=== PATIENT | male | born 1965 | race Caucasian/White ===

== ENCOUNTER 2024-09-22 18:42 | Inpatient (IN) | payer BC, OTHER ==
[~2024-09-22] VITALS: Ht 177.8 cm; Wt 93.1 kg
--- NOTE | 2024-09-22 19:02 | ED.PDOC ---
HPI Comments 58-year-old male with PMHx HTN, DM, Asthma brought in by EMS from [facility] presents with a chief complaint of body aches, fever, vomiting, and cough x 1 week. Patient states that he has been feeling this way for the past week. Patient was transferred due to elevated troponin levels, but had no ST elevations and was documented that he has an NSTEMI. Patients troponin level was 1.82. Patient is not endorsing any chest pain at this time. Patient was transferred with a Heparin drip and was given ASA. EKG shows NSR and rate of 85. No other symptoms or modifying factors present at this time. Chief Complaint: Body Pain Time Seen by MD: 18:48 Reviewed Notes: System Admin Notes, Medications, Allergies Allergies: Coded Allergies: NO KNOWN ALLERGIES (Unverified , 09/22/24) Information Source: Emergency Med Personnel Mode of Arrival: EMS Severity: Moderate Timing: Days Duration: Since onset Prehospital treatment: ASA, Treatment (Heparin Drip ) Onset: At Rest Cardiac Risk Factors: Smoker PE Risk Factors: None History of: Aspirin Associated Signs and Symptoms: Other (BODY ACHES) Past Medical History PAST MEDICAL HISTORY: Asthma, DM, HTN Surgical History: Denies all surgeries SKIN TANNER History: Denies all SKIN TANNER Hx Family History Family History: Reviewed,noncontributory to illness Social History Smoker: Cigarettes Alcohol: Denies ETOH Use Drugs: Denies Drug Use Lives In: Home Constitutional: reports: fever, others (BODY ACHES); denies: chills, diaphoresis, fatigue, malaise, sweats, weakness EENTM: denies: blurred vision, double vision, ear bleeding, ear discharge, ear drainage, ear pain, ear ringing, eye pain, eye redness, hearing loss, mouth pain, mouth swelling, nasal discharge, nose bleeding, nose congestion, nose pain, photophobia, tearing, throat pain, throat swelling, voice changes, others Respiratory: reports: cough; denies: hemoptysis, orthopnea, SOB at rest, shortness of breath, SOB with excertion, stridor, wheezing, others Cardiovascular: denies: chest pain, dizzy spells, diaphoresis, Dyspnea on exertion, edema, irregular heart beat, left arm pain, lightheadedness, palpitations, PND, syncope, others Gastrointestinal: reports: vomiting; denies: abdomen distended, abdominal pain, blood streaked bowels, constipated, diarrhea, dysphagia, difficulty swallowing, hematemesis, melena, nausea, poor appetite, poor fluid intake, rectal bleeding, rectal pain, others Genitourinary: denies: abnormal vagina bleeding, burning, dyspareunia, dysuria, flank pain, frequency, hematuria, incontinence, pain, , vagina discharge, urgency, others Neurological: denies: dizziness, fainting, headache, left sided numbness, left sided weakness, numbness, paresthesia, pre-existing deficit, right sided numbness, right sided weakness, seizure, speech problems, tingling, tremors, weakness, others Musculoskeletal: denies: back pain, gout, joint pain, joint swelling, muscle pain, muscle stiffness, neck pain, others Integumetry: denies: bruises, change in color, change in hair/nails, dryness, laceration, lesions, lumps, rash, wounds, others Allergic/Immunocompromised: denies: Difficulty Healing, Frequent Infections, Hives, Itching, others Hematologic/Lymphatic: denies: anemia, blood clots, easy bleeding, easy bruising, swollen glands, others Endocrine: denies: excessive hunger, excessive sweating, excessive thirst, excessive urination, flushing, intolerance to cold, intolerance to heat, unexplained weight gain, unexplained weight loss, others Psychiatric: denies: anxiety, bipolar disorder, depression, hopeless, panic disorder, schizophrenia, sleepless, suicidal, others All Other Systems: Reviewed and Negative Physical Exam General Appearance: Mild Distress, Normal, Other (BODY ACHES) HEENT: Normal ENT Inspection, Pharynx Normal, TMs Normal Neck: Full Range of Motion, Non-Tender, Normal, Normal Inspection Respiratory: Chest Non-Tender, Lungs Clear, No Accessory Muscle Use, No Respiratory Distress, Normal Breath Sounds Cardiovascular: No Edema, No JVD, No Murmur, No Gallop, Normal Peripheral Pulses, Regular Rate/Rhythm Breast Exam: Deferred Gastrointestinal: No Organomegaly, Non Tender, No Pulsatile Mass, Normal Bowel Sounds, Soft Genitalia: Deferred Pelvic: Deferred Rectal: Deferred Extremities: No calf tenderness, Normal capillary refill, Normal inspection, Normal range of motion, Non-tender, No pedal edema Musculoskeletal : Apperance: Normal Neurologic: Alert, pension examiner II-XII nml as Tested, No Motor Deficits, Normal Affect, Normal Mood, No Sensory Deficits Cerebellar Function: Normal Reflexes: Normal Skin: Dry, Normal Color, Warm Lymphatic: No Adenopathy EKG EKG : Pulse Rate (adult): 85 [place]: Normal Cardiac Rhythm: NSR Block: None Hypertrophy: None ST: Normal Was a procedure done? Was a procedure done?: No CP Differential Dx Differential Diagnosis: Angina, Other (see chest pain differentiala) Differential Diagnosis: Angina, Aortic dissection, Chest Wall Pain, Cholelithiasis, Costochondritis, Esophageal reflux/spasm, Gastritis, Myocardial Infarction, Pericarditis, Pneumonia, Pneumothorax, Pulmonary Embolus X-Ray, Labs, Meds, VS Vital Signs Date Time Temp Pulse Resp B/P (MAP) Pulse Ox O2 Delivery O2 Flow Rate FiO2 09/22/24 19:02 85 09/22/24 18:47 85 09/22/24 18:46 99.1 83 16 141/73 (95) 94 Time of 1ST Reevaluation: 19:18 Reevaluation 1ST: Unchanged Time of 2ND Reevaluation: 19:44 Reevaluation 2ND: Resolved Consultation: Other (hopitalist) Patient Education/Counseling: Diagnosis, Treatment, Prognosis, Need For Follow Up Family Education/Counseling: No Family Present Additional Information I reviewed the following notes from the pt's past medical encounters: Patient has no previous EMR charts at this facility. I reviewed ER notes from [facility] The following tests were ordered, and results were reviewed by me: (labs, EKGS, xrays, etc) Additional information was gathered from interviewing the following independent historians: EMS transferred patient with documentation from [facility] in [place], [place]. I reviewed and agreed with the following test results read by other providers: (xray) I discussed treatments and results with medical personnel and consultants Departure 1 Departure Time of Disposition: 19:51 Impression: Primary Impression: NSTEMI (non-ST elevated myocardial infarction) Disposition: 09 ADMITTED INPATIENT Admit to: ICU Condition: Serious Critical Care Note Critical Care Time?: Yes (45 min-critical care time only) Critical care comment: Due to the possibility of patient's condition deteriorating, the patient required my highest attention and readiness to intervene. i assessed the patient, reviewed his records, ordered the proper tests and treatments. i communicated with medical personnel, reassessed the patient for response to treatments. i formulated a care plan and provided the critical care that excluded any procedures Stability Stability form required: No Heart Score Heart Score: Heart Score Response (Comments) Value History Highly Suspicious [address]-Deviation 2 Age >65 2 Risk Factors 1 or 2 risk factors 1 Troponin >3 x's Normal limit 2 Total 9 I personally scribed for JEROD GONZALEZ MD ([email or web address]) on 09/22/24 at 19:02. Electronically submitted by Jose Rosario ([email or web address]). JEROD GONZALEZ MD Sep 22, 2024 19:02
--- NOTE | 2024-09-22 19:40 | DVH ---
EXAMINATION: AP portable chest radiograph CLINICAL HISTORY: cp COMPARISON: None TECHNIQUE: Single portable AP view of the chest FINDINGS: Negative AP chest. No dominant consolidations. The costophrenic angles are clear. No sizable pleural effusions or pneumo thorax identified. The cardiomediastinal silhouette appears within normal limits given technique. IMPRESSION: 1. Cardiac size is within normal limits.
[2024-09-22 20:03] LABS: Chloride 100 mmol/L (98-107); Sodium 137 mmol/L (136-145)
[2024-09-22 20:04] LABS: Anion Gap 7 (5-15); Calcium 9.1 mg/dL (8.7-10.4); Carbon Dioxide 30 mmol/L (20-31); Potassium 5.1 mmol/L (3.5-5.1)
[2024-09-22 20:09] LABS: BUN/Creatinine Ratio 11.8 (10.0-20.0); Blood Urea Nitrogen 11 mg/dL (9-23); Glucose 314 mg/dL (74-106)
[2024-09-22] MEDS ORDERED: MORPHINE SULFATE INJ 2 MG/ml SYRG IV PRN ×3 (20:15→23:30)
[2024-09-22] MEDS ORDERED: ONDANSETRON HCL 4 MG/2 ML VIAL IV PRN ×2 (20:15→23:30)
[2024-09-22] MEDS ORDERED: NITROGLYCERIN 0.4 MG SL TAB SL PRN ×2 (20:15→23:30)
[2024-09-22] MEDS ORDERED: ACETAMINOPHEN 325 MG TAB PO PRN ×2 (20:15→23:30)
[2024-09-22 21:14] VITALS: PULSE 77; RESP 15; O2SAT 93
[2024-09-22 21:19] LABS: Basophils # (auto) 0 10 ^3/uL (0-0.2); Basophils % (auto) 0.4 % (0.0-2.0); Eosinophils # (auto) 0.3 10 ^3/uL (0-0.8); Eosinophils % (auto) 2.5 % (0.0-7.0); Hematocrit 51.9 % (36.0-46.0); Hemoglobin 17.4 g/dL (12.2-16.2); Lymphocytes # (auto) 3.6 10 ^3/uL (0.4-5.4); Lymphocytes % (auto) 26.8 % (10.0-50.0); Mean Corpuscular Hemoglobin 30.5 pg (28.0-32.0); Mean Corpuscular Hgb Conc. 33.5 g/dL (32.0-36.0); Mean Corpuscular Volume 90.9 fL (80.0-100.0); Monocytes # (auto) 1.3 10 ^3/uL (0-1.3); Monocytes % (auto) 9.4 % (0.0-12.0); Neutrophils # (auto) 8.3 10 ^3/uL (1.6-8.6); Neutrophils % (auto) 60.9 % (37.0-80.0); Platelet Count (auto) 228 10^3/uL (140-450); Red Blood Cells 5.71 10^6/uL (4.0-5.20); Red Cell Distribution Width 14.7 % (11.8-14.3); White Blood Cell 13.5 10^3/uL (4.4-10.8)
[2024-09-22] MEDS: SODIUM CHLOR 0.9% PF (SALINE LOCK) 10ML VIAL/SYR IV SCH (21:19)
[2024-09-22 21:21] LABS: Urine Bacteria None Seen /hpf (None Seen)
[2024-09-22 21:27] LABS: COVID19 ANTIGEN SOFIA FIA NEGATIVE (NEGATIVE); Rapid Influenza A Negative (Negative); Rapid Influenza B Negative (Negative)
[2024-09-22 21:30] LABS: Urine Blood Negative /uL (Negative); Urine Clarity Clear (Clear); Urine Color Yellow (Yellow); Urine Protein, UAD TRACE (Negative); Urine Specific Gravity 1.044 (1.001-1.035); Urine Urobilinogen Normal (Negative); Urine WBC <1 /hpf (0 - 5); Urine pH 6.5 (5.0-9.0)
[2024-09-22 21:32] LABS: INR 1.01 (0.9-1.15); Partial Thromboplastin Time 27.9 SEC (24.5-34.5); Prothrombin Time 10.7 sec (9.3-11.8)
[2024-09-22 21:38] LABS: Opiate Scree,Urine Neg (NEGATIVE); Phencyclidine Screen, Urine Neg (NEGATIVE)
[2024-09-22 21:39] LABS: Amphetamine Screen, Urine Neg (NEGATIVE); Barbiturate Scree,Urine Neg (NEGATIVE); Benzodiazephine Screen, Urine Neg (NEGATIVE); Cocaine Screen, Urine Neg (NEGATIVE)
[2024-09-22 22:10] LABS: Cannabinoid Screen, Urine Neg (NEGATIVE)
[2024-09-22] MEDS: HEPARIN SODIUM (PORCINE) 5000 UNITS/ML 1ML VIAL IV ONE (22:20)
[2024-09-22] MEDS: HEPARIN DRIP/D5W 100UNITS/ML 250 ML IV SCH (22:25)
[2024-09-22] MEDS ORDERED: DEXTROSE (50%) 50ML SYRG IV PRN (23:30)
[2024-09-22] MEDS ORDERED: hydrALAZINE HCL 20 MG/ML VL IV PRN (23:30)
[2024-09-23] VITALS (20 sets, daily range): BP systolic 120–150; BP diastolic 7–84; PULSE 77–103; RESP 12–22; TEMP 97.7–99.2; O2SAT 90–98
[2024-09-23] MEDS: LEVALBUTEROL HCL 1.25 MG/3 ML NEB NEB SCH
--- NOTE | 2024-09-23 00:02 | DVHHPRES ---
History of Present Illness Resident Creating Document: YASMANI MARQUIS RESIDENT History of Present Illness Patient is 58 years old male with past medical history of CAD, PTCAx1, hypertension, diabetes mellitus type 2, asthma came with a complaint of chest pain and shortness of breaths. Patient was transferred from a [facility] for elevated troponin I. As per patient patient have chest pain for 5 days. Chest pain was sudden once it, in the left side of the chest 2, 7/10 maximum severity, pressure-like,, no radiation aggravated with exertion. Patient also endorsed some short of breath for last 4 days exacerbated with exertion. Patient reported that he has been coughing for last 5 days with greenish sputum. On further discussion patient also endorsed some fever but could not mentioned the temperature. Patient also reported that he has been around sick contact at home. Patient denied any palpitation, constipation or diarrhea, dysuria, dizziness, acute joint swelling, dysarthria or change in vision. EKG revealed with a sinus rhythm, T-wave inversion in 1 and aVL. Initial lab workup revealed leukocytosis with WBC 13.5, hemoglobin 17.4, platelet 228, troponin I 2327> 2441> 2396. UDS negative. Patient tested negative for COVID-19 and influenza type A and B. CXR suspected bilateral lower lobe congestion/opacity. Past Medical History CAD, PTCAx1, hypertension, diabetes mellitus type 2, asthma Past Surgical History Neck surgery, PTCA x1, Family History Mom and dad both had hypertension Past Social History Smoker, half a pack a day, denies doing drugs or alcohol, lives in a [facility] Review of Systems Review of Systems Allergy- NKDA Patient was seen today at the bedside. Gastrointestinal- denies any rectal bleeding, nausea or vomiting Musculoskeletal-denies acute joint swelling or tenderness or redness Neurological- denies acute dysarthria, dysphagia, change in vision Psychiatry- denies depression or SI or HI Skin- denies acute rash or purpura Allergies: Coded Allergies: NO KNOWN ALLERGIES (Unverified , 09/22/24) Medications Current Medications Medications Dose Ordered Sig/[place] Route Start Time Stop Time Status Last Admin Dose Admin Heparin Sodium/ Dextrose 250 ml @ 10 mls/hr Q24H IV 09/22/24 20:00 09/22/24 22:25 10 MLS/HR Sodium Chloride 10 ml Q8HR IV 09/22/24 22:00 09/22/24 21:19 10 ML Ondansetron HCl 4 mg Q4HP PRN IV 09/22/24 20:15 Morphine Sulfate 2 mg Q4HPRN PRN IV 09/22/24 20:15 Nitroglycerin 0.4 mg Q5MINP PRN SL 09/22/24 20:15 Morphine Sulfate 2 mg Q30M PRN IV 09/22/24 20:15 Acetaminophen 650 mg Q6HP PRN PO 09/22/24 23:30 Aspirin 81 mg DAILY PO 09/23/24 10:00 Atorvastatin Calcium 80 mg HS PO 09/23/24 22:00 Pantoprazole Sodium 40 mg DAILY IV 09/23/24 10:00 Ceftriaxone Sodium 50 ml @ 100 mls/hr DAILY IV 09/24/24 10:00 UNV Doxycycline Hyclate 250 ml @ 125 mls/hr Q12H IV 09/23/24 22:00 UNV Methylprednisolone Sodium Succinate 40 mg BID IV 09/23/24 10:00 UNV Levalbuterol HCl 1.25 mg Q6HR NEB 09/23/24 00:00 UNV Ipratropium [place] 0.5 mg Q6HWA NEB 09/23/24 06:00 UNV Exam Vital Signs Vital Signs Date Time Temp Pulse Resp B/P (MAP) Pulse Ox O2 Delivery O2 Flow Rate FiO2 09/22/24 21:14 77 15 93 Room Air* 0 21 09/22/24 19:30 99.2 134/62 (86) 99.2 Exam General examination- awake, alert, oriented, conversant HEENT- PEERLA, no acute nasal discharge Cardiovascular- S1-S2 audible, rate and rhythm regular, systolic murmur+ Respiratory- bilateral lung wheezing with prolonged expiration++ Gastrointestinal-nontender, bowel sound+. Nondistended Musculoskeletal-no acute joint swelling or tenderness or redness# Lower extremity- no leg edema Neurological- cranial nerves intact, no acute dysarthria or dysphagia Psychiatry- denies depression or SI or HI Skin- no acute rash or purpura Labs/Xrays Labs Test 09/23/24 00:00 09/22/24 22:57 09/22/24 21:20 09/22/24 20:59 Range/Units Troponin I High Sensitivity 2396 *H </=34 ng/L Urine Color Yellow Yellow Urine Clarity Clear Clear Urine pH 6.5 5.0-9.0 Urine Specific [place] 1.044 H 1.001-1.035 Urine Protein Trace H Negative Urine Ketones 1+ H Negative Urine Blood Negative Negative /uL Urine Nitrite Negative Negative Urine Bilirubin Negative Negative Urine Urobilinogen Normal Negative mg/dL Urine Leukocyte Esterase Negative Negative /uL Urine RBC 3 0 - 4 /hpf Urine WBC <1 0 - 5 /hpf Urine Squamous Epithelial Cells None seen <5 /hpf Urine Bacteria None seen None Seen /hpf Urine Glucose 4+ H Normal mg/dL Urine Opiates Screen Neg NEGATIVE Urine Fentanyl Screen Neg NEGATIVE Urine Barbiturates Screen Neg NEGATIVE Urine Phencyclidine Screen Neg NEGATIVE Urine Amphetamines Screen Neg NEGATIVE Urine Benzodiazepines Screen Neg NEGATIVE Urine Cocaine Screen Neg NEGATIVE Urine Cannabinoids Screen Neg NEGATIVE Influenza Type A Antigen Negative Negative Influenza Type B Antigen Negative Negative SARS-CoV-2 Antigen (Rapid) Negative NEGATIVE Test 09/22/24 20:52 09/22/24 19:44 09/22/24 19:43 Range/Units White Blood Count 13.5 H 4.4-10.8 10^3/uL Red Blood Count 5.71 H 4.0-5.20 10^6/uL Hemoglobin 17.4 H 12.2-16.2 g/dL Hematocrit 51.9 H 36.0-46.0 % Mean Corpuscular Volume 90.9 80.0-100.0 fL Mean Corpuscular Hemoglobin 30.5 28.0-32.0 pg Mean Corpuscular Hemoglobin Concent 33.5 32.0-36.0 g/dL Red Cell Distribution Width 14.7 H 11.8-14.3 % Platelet Count 228 140-450 10^3/uL Mean Platelet Volume 8.7 6.9-10.8 fL Neutrophils (%) (Auto) 60.9 37.0-80.0 % Lymphocytes (%) (Auto) 26.8 10.0-50.0 % Monocytes (%) (Auto) 9.4 0.0-12.0 % Eosinophils (%) (Auto) 2.5 0.0-7.0 % Basophils (%) (Auto) 0.4 0.0-2.0 % Neutrophils # (Auto) 8.3 1.6-8.6 10 ^3/uL Lymphocytes # (Auto) 3.6 0.4-5.4 10 ^3/uL Monocytes # (Auto) 1.3 0-1.3 10 ^3/uL Eosinophils # (Auto) 0.3 0-0.8 10 ^3/uL Basophils # (Auto) 0 0-0.2 10 ^3/uL Nucleated Red Blood Cells 0.0 % Activated Partial Thromboplast Time 27.9 24.5-34.5 SEC Sodium Level 137 136-145 mmol/L Potassium Level 5.1 3.5-5.1 mmol/L Chloride Level 100 98-107 mmol/L Carbon Dioxide Level 30 20-31 mmol/L Anion Gap 7 5-15 Blood Urea Nitrogen 11 9-23 mg/dL Creatinine 0.93 0.550-1.02 mg/dL Glomerular Filtration Rate Calc 71 >90 mL/min BUN/Creatinine Ratio 11.8 10.0-20.0 Serum Glucose 314 H 74-106 mg/dL Calcium Level 9.1 8.7-10.4 mg/dL POC Glucose 280 H 70-106 mg/dl Assessment/Plan Assessment/Plan Acute chest pain likely due to acute coronary syndrome/pneumonia - EKG revealed with a sinus rhythm, T-wave inversion in 1 and aVL. -WBC 13.5, hemoglobin 17.4, - troponin I 2327> 2441> 2396. -continue aspirin 81 mg daily -continue atorvastatin 80 mg q.h.s. -continue heparin as per protocol -methylprednisolone 40 mg IV b.i.d. -continue ceftriaxone 1 g IV daily -continue azithromycin 500 mg IV daily -continue nebulization as prescribed -ordered cardiology consult for further evaluation and care -pending echo 2D # suspected acute coronary syndrome likely an STEMI type 1 -- EKG revealed with a sinus rhythm, T-wave inversion in 1 and aVL. - troponin I 2327> 2441> 2396. -continue aspirin 81 mg daily -continue atorvastatin 80 mg q.h.s. -continue heparin as per protocol -continue nebulization as prescribe -ordered cardiology consult for further evaluation and care -pending echo 2D #Acute pneumonia Gram-positive versus Gram-negative - complained of cough with greenish sputum -WBC 13.5, hemoglobin 17.4, -methylprednisolone 40 mg IV b.i.d. -continue ceftriaxone 1 g IV daily --continue azithromycin 500 mg IV daily -continue nebulization as prescribed -pending sputum CS and blood CS -pending echo 2D #Acute hypoxic respiratory failure likely due to acute exacerbation of Asthma/PNA -WBC 13.5, hemoglobin 17.4, -methylprednisolone 40 mg IV b.i.d. -continue ceftriaxone 1 g IV daily --continue azithromycin 500 mg IV daily -continue nebulization as prescribed -pending sputum CS and blood CS -pending echo 2D # acute exacerbation of asthma likely due to pneumonia - complained of cough with greenish sputum -WBC 13.5, hemoglobin 17.4, -methylprednisolone 40 mg IV b.i.d. -continue nebulization as prescribed -pending sputum CS and blood CS # acute hypoxic respiratory failure likely due to pneumonia versus acute heart failure -continue nebulization as prescribed -pending sputum CS and blood CS -pending echo 2D # hypertension -continue hydralazine 10 mg q.6h p.r.n. -monitor BP # mellitus type 2 -HGB A1c 9.6 -continuously sliding scale as prescribed # polycythemia likely due to chronic asthma -HGB 7.4 -meters CBC Goals of care/advance care planning; FULL CODE; discussed with the patient >15 minutes PUD prophylaxis: Famotidine DVT prophylaxis: On heparin Plan discussed with Dr. Bella, nursing staff, patient Total time spent on patient evaluation, chart review, assessment and plan, discussion discussion >30 minutes Plan discussed with: Patient Plan discussed with: Patient, Other (RN) My Orders Orders - YASMANI MARQUIS RESIDENT Procedure Category Date Status Time Sodium Chloride Lock PHA 09/22/24 In Process (Saline Lock Ns) 22:00 Ondansetron Hcl PHA 09/22/24 In Process (Zofran) 20:15 Morphine Sulfate PHA 09/22/24 In Process Injection 20:15 Nitroglycerin PHA 09/22/24 In Process Sublingual (Ntrostat 20:15 Morphine Sulfate PHA 09/22/24 In Process Injection 20:15 Oxygen By Nasal RT 09/22/24 Transmitted Cannula 20:08 Stat Ekg For Chest KAJAL 09/22/24 In Process Pain 20:08 Notify Of Changes KAJAL 09/22/24 In Process From Base 20:08 Law Tutor For KAJAL 09/22/24 In Process 24 Hours 20:08 Emergency Dysrhythmia KAJAL 09/22/24 In Process Protocol 20:08 Rhythm Strips Once KAJAL 09/22/24 In Process Every Shift 20:08 Admit ADMIT 09/22/24 Transmitted 23:23 Code Status CODE 09/22/24 Transmitted 23:23 Complete Blood Count LAB 09/23/24 Transmitted 04:00 Comprehensive LAB 09/23/24 Transmitted Metabolic Panel 04:00 Cardiac DIET 09/23/24 Transmitted Diet-2gna,Lofat,Lochol Breakfast Echo 2d Mode Cardiac US 09/22/24 Logged DOP 23:23 Acetaminophen Tablet PHA 09/22/24 In Process (Tylenol Tablet) 23:30 Oxygen By Nasal RT 09/22/24 Transmitted Cannula 23:23 Stat Ekg For Chest KAJAL 09/22/24 In Process Pain 23:23 Notify Of Changes KAJAL 09/22/24 In Process From Base 23:23 * Cardiology Consult CONS 09/22/24 Transmitted 23:30 Aspirin Tablet PHA 09/23/24 In Process 10:00 Atorvastatin (Lipitor) PHA 09/23/24 In Process 22:00 Pantoprazole PHA 09/23/24 In Process (Protonix) 10:00 B-Type Natriuretic LAB 09/22/24 In Process Peptide 23:37 Magnesium LAB 09/22/24 In Process 23:37 Phosphorus LAB 09/22/24 In Process 23:37 Thyroid Stimulating LAB 09/22/24 In Process Hormone 23:37 Hemoglobin A1c LAB 09/22/24 In Process 23:37 Prothrombin Time W/ LAB 09/22/24 Logged INR 23:37 Albuterol Medneb PHA 09/23/24 Logged (Ventolin Medneb) 00:00 Ipratropium Medneb PHA 09/23/24 Logged (Atrovent Medneb) 00:00 Ceftriaxone 1gm/50ml PHA 09/23/24 Logged D5w (Rocephin) 00:00 Doxycycline PHA 09/23/24 Logged 100mg/250ml 00:00 Doxycycline PHA 09/23/24 Logged 100mg/250ml 00:00 Methylprednisolone PHA 09/23/24 Logged Sod Succ (Solu Medrol 00:00 Methylprednisolone PHA 09/23/24 Logged Sod Succ (Solu Medrol 10:00 Levalbuterol Hcl PHA 09/23/24 Logged (Xopenex Medneb) 00:00 Ipratropium [place] PHA 09/23/24 Logged (Atrovent Medneb) 06:00 Ceftriaxone 1gm/50ml PHA 09/24/24 Logged D5w (Rocephin) 10:00 Date of Service: Sep 22, 2024 Billing Provider: ANALI BELLA MD Common Visit Codes: [id number] INP/OBS CARE (HIGH) YASMANI MARQUIS RESIDENT Sep 23, 2024 00:02 ANALI BELLA MD Sep 23, 2024 19:15
[2024-09-23] MEDS: ALBUTEROL SULF 2.5 MG/0.5ML(0.5%) NEB SOLN NEB ONE (00:05)
[2024-09-23] MEDS: IPRATROPIUM BROM 0.5 MG/2.5ML INH SOL NEB ONE (00:05)
[2024-09-23] MEDS: cefTRIAXone 1GM/50ML D5W 50 ML IV ONE (00:08)
[2024-09-23] MEDS: methylPREDNISolone SOD SUCC 40 MG/ML VL IV ONE (00:09)
[2024-09-23] MEDS: ASPirin 81 mg TAB PO ONE (00:09)
[2024-09-23] MEDS: ATORVASTATIN 20 MG TAB PO ONE (00:09)
[2024-09-23] MEDS: ALBUTEROL SULF 2.5 MG/0.5ML(0.5%) NEB SOLN ONE (00:10)
[2024-09-23] MEDS: IPRATROPIUM BROM 0.5 MG/2.5ML INH SOL ONE (00:10)
[2024-09-23] MEDS: PANTOPRAZOLE 40 MG/10 ML VIAL INJ IV ONE (00:10)
[2024-09-23] MEDS: DOXYCYCLINE 100MG/250ML 250 ML IV ONE (00:30)
[2024-09-23 00:31] LABS: Magnesium 2.2 mg/dL (1.6-2.6)
[2024-09-23 00:33] LABS: Phosphorus 2.9 mg/dL (2.4-5.1)
[2024-09-23 00:47] LABS: INR 1.11 (0.9-1.15); Prothrombin Time 11.7 sec (9.3-11.8)
[2024-09-23] MEDS: FUROSEMIDE 40 MG/4 ML VIAL IV ONE (01:16)
[2024-09-23] MEDS: FAMOTIDINE (10MG/ML) 2ML VL IV ONE (01:16)
[2024-09-23] MEDS ORDERED: HYDRX10T PO (05:47)
[2024-09-23] MEDS ORDERED: ARIP5TAB22 PO (05:47)
[2024-09-23] MEDS ORDERED: NICO21DI37 TOP (05:47)
[2024-09-23] MEDS ORDERED: FOLI-119 PO (05:47)
[2024-09-23] MEDS ORDERED: SODIUM CHLOR 0.9% PF (SALINE LOCK) 10ML VIAL/SYR IV SCH (06:00)
[2024-09-23] MEDS ORDERED: IPRATROPIUM BROM 0.5 MG/2.5ML INH SOL NEB SCH (06:00)
[2024-09-23 06:36] LABS: Basophils # (auto) 0 10 ^3/uL (0-0.2); Basophils % (auto) 0.1 % (0.0-2.0); Eosinophils # (auto) 0 10 ^3/uL (0-0.8); Eosinophils % (auto) 0.1 % (0.0-7.0); Hematocrit 52.1 % (36.0-46.0); Hemoglobin 17.6 g/dL (12.2-16.2); Lymphocytes # (auto) 0.9 10 ^3/uL (0.4-5.4); Lymphocytes % (auto) 8.6 % (10.0-50.0); Mean Corpuscular Hemoglobin 30.6 pg (28.0-32.0); Mean Corpuscular Hgb Conc. 33.7 g/dL (32.0-36.0); Mean Corpuscular Volume 90.8 fL (80.0-100.0); Monocytes # (auto) 0.2 10 ^3/uL (0-1.3); Monocytes % (auto) 1.8 % (0.0-12.0); Neutrophils # (auto) 9.3 10 ^3/uL (1.6-8.6); Neutrophils % (auto) 89.4 % (37.0-80.0); Nucleated Red Blood Cells % 0.1 %; Platelet Count (auto) 253 10^3/uL (140-450); Red Blood Cells 5.73 10^6/uL (4.0-5.20); Red Cell Distribution Width 14.5 % (11.8-14.3); White Blood Cell 10.4 10^3/uL (4.4-10.8)
[2024-09-23] MEDS: IPRATROPIUM BROM 0.5 MG/2.5ML INH SOL NEB SCH (06:40)
[2024-09-23 06:53] LABS: INR 1.09 (0.9-1.15); Partial Thromboplastin Time 31.6 SEC (24.5-34.5); Prothrombin Time 11.5 sec (9.3-11.8)
[2024-09-23 06:59] LABS: Albumin 4.2 g/dL (3.2-4.8); Anion Gap 13 (5-15); BUN/Creatinine Ratio 10.9 (10.0-20.0); Blood Urea Nitrogen 10 mg/dL (9-23); Calcium 9.3 mg/dL (8.7-10.4); Carbon Dioxide 22 mmol/L (20-31); Chloride 98 mmol/L (98-107); Potassium 4.8 mmol/L (3.5-5.1)
[2024-09-23 07:00] LABS: Bilirubin, Total 0.7 mg/dL (0.2-1.0); Total Protein 6.9 g/dL (5.7-8.2)
[2024-09-23 07:07] LABS: Alanine Aminotransferase < 9 U/L (7-40); Alkaline Phosphatase 141 U/L (46-116); Aspartate Aminotransferase 12 U/L (13-40); Sodium 133 mmol/L (136-145)
[2024-09-23 07:08] LABS: Glucose 436 mg/dL (74-106)
[2024-09-23] MEDS: ACCU-CHEK COMFORT CURVE STRIP VI SCH (07:29)
[2024-09-23] MEDS: InsuLIN REG 1unit/0.01ml Soln (100units/ml) SC SCH (07:29)
--- NOTE | 2024-09-23 08:09 | DVHINCON2 ---
Date of service: Sep 22, 2024 History of Present Illness Patient is 58 years old male with past medical history of CAD, PTCAx1, hypertension, diabetes mellitus type 2, asthma came with a complaint of chest pain and shortness of breaths. Patient was transferred from a [facility] for elevated troponin I. As per patient patient have chest pain for 5 days. Chest pain was sudden once it, in the left side of the chest 2, 7/10 maximum severity, pressure-like,, no radiation aggravated with exertion. Patient also endorsed some short of breath for last 4 days exacerbated with exertion. Patient reported that he has been coughing for last 5 days with greenish sputum. On further discussion patient also endorsed some fever but could not mentioned the temperature. Patient also reported that he has been around sick contact at home. Patient denied any palpitation, constipation or diarrhea, dysuria, dizziness, acute joint swelling, dysarthria or change in vision. EKG revealed with a sinus rhythm, T-wave inversion in 1 and aVL. Initial lab workup revealed leukocytosis with WBC 13.5, hemoglobin 17.4, platelet 228, troponin I 2327> 2441> 2396. UDS negative. Patient tested negative for COVID-19 and influenza type A and B. CXR suspected bilateral lower lobe congestion/opacity. Past Medical History CAD, PTCAx1, hypertension, diabetes mellitus type 2, asthma Past Surgical History Neck surgery, PTCA x1, Family History Mom and dad both had hypertension Past Social History Smoker, half a pack a day, denies doing drugs or alcohol, lives in a skilled nursing Review of Systems Past Medical History reviewed Allergies: Coded Allergies: NO KNOWN ALLERGIES (Unverified , 09/22/24) Home Meds Reported Medications Folic Acid (Folic Acid) 1 Mg Tab, 1 TAB PO DAILY 09/23/24 Hydroxyzine Hcl (Hydroxyzine Hcl) 10 Mg Tab, 2 TAB PO QHSP PRN 09/23/24 Nicotine (Nicotine Transdermal Syst) 21 Mg/24 Hr Dis, 1 PATCH TOP DAILY 09/23/24 Aripiprazole (Aripiprazole) 5 Mg Tab, 1 TAB PO DAILY 09/23/24 Current Medications Current Medications Medications (Trade) Dose Ordered Sig/[place] Route PRN Reason Start Time Stop Time Status Last Admin Heparin Sodium/ Dextrose 250 ml @ 10 mls/hr Q24H IV 09/22/24 20:00 09/23/24 06:14 DC 09/22/24 22:25 Sodium Chloride (Saline Lock Ns) 10 ml Q8HR IV 09/22/24 22:00 09/23/24 06:02 Ondansetron HCl (Zofran) 4 mg Q4HP PRN IV NAUSEA / VOMITING 09/22/24 20:15 Acetaminophen (Tylenol Tablet) 650 mg Q6HP PRN PO PAIN SCALE 1-3 OR TEMP>100.4 09/22/24 20:15 09/22/24 23:32 DC Morphine Sulfate 2 mg Q4HPRN PRN IV SEVERE PAIN (7-10 PAIN SCALE) 09/22/24 20:15 Nitroglycerin (Ntrostat Sublingual) 0.4 mg Q5MINP PRN SL FOR CHEST PAIN 09/22/24 20:15 Morphine Sulfate 2 mg Q30M PRN IV FOR CHEST PAIN 09/22/24 20:15 Sodium Chloride (Saline Lock Ns) 10 ml Q8HR IV 09/23/24 06:00 09/22/24 23:34 DC Ondansetron HCl (Zofran) 4 mg Q4HP PRN IV NAUSEA / VOMITING 09/22/24 23:30 09/22/24 23:34 DC Acetaminophen (Tylenol Tablet) 650 mg Q6HP PRN PO PAIN SCALE 1-3 OR TEMP>100.4 09/22/24 23:30 Nitroglycerin (Ntrostat Sublingual) 0.4 mg Q5MINP PRN SL FOR CHEST PAIN 09/22/24 23:30 09/22/24 23:34 DC Morphine Sulfate 2 mg Q30M PRN IV FOR CHEST PAIN 09/22/24 23:30 09/22/24 23:33 DC Aspirin 81 mg DAILY PO 09/23/24 10:00 Atorvastatin Calcium (Lipitor) 80 mg HS PO 09/23/24 22:00 Pantoprazole Sodium (Protonix) 40 mg DAILY IV 09/23/24 10:00 Ceftriaxone Sodium 50 ml @ 100 mls/hr DAILY IV 09/24/24 10:00 Doxycycline Hyclate 250 ml @ 125 mls/hr Q12H IV 09/23/24 10:00 09/23/24 05:45 DC Methylprednisolone Sodium Succinate (Solu Medrol) 40 mg BID IV 09/23/24 10:00 09/23/24 05:45 DC Levalbuterol HCl (Xopenex Medneb) 1.25 mg Q6HR NEB 09/23/24 00:00 09/23/24 06:40 Ipratropium [place]ill (Atrovent Medneb) 0.5 mg Q6HWA [facility] 09/23/24 06:00 09/23/24 00:18 DC Ipratropium Traphill (Atrovent Medneb) 0.5 mg Q6HR NEB 09/23/24 06:00 09/23/24 06:40 Hydralazine HCl (Apresoline Injection) 10 mg Q6HP PRN IV SBP>150 09/22/24 23:30 Diagnostic Test (Pha) (Accu-Chek Comfort Curve T) 1 strip ACHS 09/23/24 07:00 09/23/24 07:29 Insulin Human Regular (InsuLIN R) ACHS SC 09/23/24 07:00 09/23/24 07:29 Dextrose 50 ml UD PRN IV Blood Sugar LESS THAN 60 09/22/24 23:30 Famotidine (Pepcid Injection) 20 mg Q12HR IV 09/23/24 10:00 Azithromycin 250 ml @ 125 mls/hr DAILY IV 09/23/24 10:00 Review of Systems 10 pt ros otherwise negative +chest pain +sob +cough +sputum +runny nose Vital Signs Vital Signs Date Time Temp Pulse Resp B/P (MAP) Pulse Ox O2 Delivery O2 Flow Rate FiO2 09/23/24 06:46 94 18 97 09/23/24 06:40 Nasal Cannula* 4 36 09/23/24 06:00 153/98 (116) 09/23/24 00:23 99.2 99.2 Physical Exam nad, signifcant cough s1 s2 rrr 3/6 ssytolic murmur diffuse rhonchi abd soft nt/nd no edema Labs/Diagnostic Data Labs Test 09/23/24 07:01 09/23/24 06:12 09/22/24 22:57 09/22/24 21:20 Range/Units POC Glucose 395 H 70-106 mg/dl White Blood Count 10.4 4.4-10.8 10^3/uL Red Blood Count 5.73 H 4.0-5.20 10^6/uL Hemoglobin 17.6 H 12.2-16.2 g/dL Hematocrit 52.1 H 36.0-46.0 % Mean Corpuscular Volume 90.8 80.0-100.0 fL Mean Corpuscular Hemoglobin 30.6 28.0-32.0 pg Mean Corpuscular Hemoglobin Concent 33.7 32.0-36.0 g/dL Red Cell Distribution Width 14.5 H 11.8-14.3 % Platelet Count 253 140-450 10^3/uL Mean Platelet Volume 8.8 6.9-10.8 fL Neutrophils (%) (Auto) 89.4 H 37.0-80.0 % Lymphocytes (%) (Auto) 8.6 L 10.0-50.0 % Monocytes (%) (Auto) 1.8 0.0-12.0 % Eosinophils (%) (Auto) 0.1 0.0-7.0 % Basophils (%) (Auto) 0.1 0.0-2.0 % Neutrophils # (Auto) 9.3 H 1.6-8.6 10 ^3/uL Lymphocytes # (Auto) 0.9 0.4-5.4 10 ^3/uL Monocytes # (Auto) 0.2 0-1.3 10 ^3/uL Eosinophils # (Auto) 0 0-0.8 10 ^3/uL Basophils # (Auto) 0 0-0.2 10 ^3/uL Nucleated Red Blood Cells 0.1 % Prothrombin Time 11.5 9.3-11.8 sec Prothrombin Time INR 1.09 0.9-1.15 Activated Partial Thromboplast Time 31.6 24.5-34.5 SEC Sodium Level 133 L 136-145 mmol/L Potassium Level 4.8 3.5-5.1 mmol/L Chloride Level 98 98-107 mmol/L Carbon Dioxide Level 22 20-31 mmol/L Anion Gap 13 5-15 Blood Urea Nitrogen 10 9-23 mg/dL Creatinine 0.92 0.550-1.02 mg/dL Glomerular Filtration Rate Calc 72 >90 mL/min BUN/Creatinine Ratio 10.9 10.0-20.0 Serum Glucose 436 *H 74-106 mg/dL Calcium Level 9.3 8.7-10.4 mg/dL Total Bilirubin 0.7 0.2-1.0 mg/dL Aspartate Amino Transferase (AST) 12 L 13-40 U/L Alanine Aminotransferase (ALT) < 9 7-40 U/L Alkaline Phosphatase 141 H 46-116 U/L Total Protein 6.9 5.7-8.2 g/dL Albumin 4.2 3.2-4.8 g/dL Phosphorus Level 2.9 2.4-5.1 mg/dL Magnesium Level 2.2 1.6-2.6 mg/dL Troponin I High Sensitivity 2396 *H </=34 ng/L Thyroid Stimulating Hormone (TSH) 1.77 0.55-4.78 uIU/mL Urine Color Yellow Yellow Urine Clarity Clear Clear Urine pH 6.5 5.0-9.0 Urine Specific [place] 1.044 H 1.001-1.035 Urine Protein Trace H Negative Urine Ketones 1+ H Negative Urine Blood Negative Negative /uL Urine Nitrite Negative Negative Urine Bilirubin Negative Negative Urine Urobilinogen Normal Negative mg/dL Urine Leukocyte Esterase Negative Negative /uL Urine RBC 3 0 - 4 /hpf Urine WBC <1 0 - 5 /hpf Urine Squamous Epithelial Cells None seen <5 /hpf Urine Bacteria None seen None Seen /hpf Urine Glucose 4+ H Normal mg/dL Urine Opiates Screen Neg NEGATIVE Urine Fentanyl Screen Neg NEGATIVE Urine Barbiturates Screen Neg NEGATIVE Urine Phencyclidine Screen Neg NEGATIVE Urine Amphetamines Screen Neg NEGATIVE Urine Benzodiazepines Screen Neg NEGATIVE Urine Cocaine Screen Neg NEGATIVE Urine Cannabinoids Screen Neg NEGATIVE Test 09/22/24 20:59 09/22/24 20:52 Range/Units Influenza Type A Antigen Negative Negative Influenza Type B Antigen Negative Negative SARS-CoV-2 Antigen (Rapid) Negative NEGATIVE Hemoglobin A1c 9.6 H <5.7 % A1C B-Type Natriuretic Peptide 93.53 0-100 pg/mL Assessment cad s/p pci nstemi r/o pna copd htn hl DM Plan/Recommendation recommend echo to r/o recommned LHC hx of pci cont asa statin check echo cough suppressant per primary service Plan discussed with: Patient TEO CHAVARRIA MD Sep 23, 2024 08:09
[2024-09-23] MEDS ORDERED: methylPREDNISolone SOD SUCC 40 MG/ML VL IV SCH (10:00)
[2024-09-23] MEDS: ASPirin 81 mg TAB PO SCH (10:00)
[2024-09-23] MEDS ORDERED: DOXYCYCLINE 100MG/250ML 250 ML IV SCH (10:00)
[2024-09-23] MEDS: IODIXANOL 320MG/ML 100ML BTL IV ONE ×4 (10:32→11:22)
[2024-09-23] MEDS: ANGIOMAX 250 MG VIAL IV ONE (10:33)
[2024-09-23] MEDS: MIDAZOLAM HCL 2MG/2ML 2ml VIAL (1mg/ml) ONE (10:34)
[2024-09-23] MEDS: SODIUM CHL 0.9% 50 ML ONE (10:34)
[2024-09-23] MEDS: LIDOCAINE 2%HCL (LOCAL ANESTH.) INJ 20ML MDV ONE (10:34)
[2024-09-23] MEDS: fentaNYL CITRATE 100 MCG/2 ML VL ONE (10:34)
[2024-09-23] MEDS: HEPARIN SODIUM (PORCINE) 5000 UNITS/ML 1ML VIAL ONE (10:34)
[2024-09-23] MEDS: VERAPAMIL 2.5MG/ML INJ 2ML VIAL IV ONE (10:34)
[2024-09-23] MEDS: TICAGRELOR 90 MG TAB ONE (11:22)
[2024-09-23] MEDS: ASPirin 325 MG TAB ONE (11:22)
--- NOTE | 2024-09-23 11:24 | DVHPN2 ---
Progress Note Date Seen: Sep 23, 2024 Medical Necessity Reason Pt with a Central, PICC or Fol: No Subjective Patient reports: Feels better Other Systems: sp pci Objective vital signs Vital Sign Date Time Temp Pulse Resp B/P (MAP) Pulse Ox O2 Delivery O2 Flow Rate FiO2 09/23/24 08:00 98.3 96 22 117/74 (88) 93 98.3 09/23/24 08:00 Nasal Cannula* 2 28 Total Intake and Output 09/22/24 09/22/24 09/23/24 15:00 23:00 07:00 Intake Total 300 ml Balance 300 ml medications Current Medications Medications Dose Ordered Sig/[place]ourdes Route Start Time Stop Time Status Last Admin Dose Admin Sodium Chloride 10 ml Q8HR IV 09/22/24 22:00 09/23/24 06:02 10 ML Ondansetron HCl 4 mg Q4HP PRN IV 09/22/24 20:15 Morphine Sulfate 2 mg Q4HPRN PRN IV 09/22/24 20:15 Nitroglycerin 0.4 mg Q5MINP PRN SL 09/22/24 20:15 Morphine Sulfate 2 mg Q30M PRN IV 09/22/24 20:15 Acetaminophen 650 mg Q6HP PRN PO 09/22/24 23:30 Aspirin 81 mg DAILY PO 09/23/24 10:00 Atorvastatin Calcium 80 mg HS PO 09/23/24 22:00 Pantoprazole Sodium 40 mg DAILY IV 09/23/24 10:00 Ceftriaxone Sodium 50 ml @ 100 mls/hr DAILY IV 09/24/24 10:00 Levalbuterol HCl 1.25 mg Q6HR NEB 09/23/24 00:00 09/23/24 06:40 1.25 MG Ipratropium [place] 0.5 mg Q6HR NEB 09/23/24 06:00 09/23/24 06:40 0.5 MG Hydralazine HCl 10 mg Q6HP PRN IV 09/22/24 23:30 Diagnostic Test (Pha) 1 strip ACHS 09/23/24 07:00 09/23/24 07:29 1 STRIP Insulin Human Regular ACHS SC 09/23/24 07:00 09/23/24 07:29 10 UNITS Dextrose 50 ml UD PRN IV 09/22/24 23:30 Famotidine 20 mg Q12HR IV 09/23/24 10:00 Azithromycin 250 ml @ 125 mls/hr DAILY IV 09/23/24 10:00 Examination: GENERAL:Abnormal, HEENT:Abnormal, LUNGS:Abnormal, CVS:Abnormal, ABDOMEN:Abnormal laboratory and microbiology Laboratory Tests 09/23/24 06:12 Test 09/23/24 06:12 Range/Units Serum Glucose 436 *H 74-106 mg/dL Problem List/Assessment/Plan Problem List/Assessment/Plan cough moderate nstemi cad s/p pci pci to 90% OM cont dapt now echo shows moderate ,mean gradient of 28 mmhg, will need annual surveillance cont cough suppressant, very bad cough Plan discussed with: Patient Date of Service: Sep 23, 2024 Billing Provider: TEO CHAVARRIA MD Common Visit Codes: NOT BILLABLE TEO CHAVARRIA MD Sep 23, 2024 11:24
--- NOTE | 2024-09-23 11:28 | DVHOP2 ---
Operative Report Operative Report CARDIAC FLIGHT AGENT PROCEDURE REPORT [place], [place] Date of Service: 09/23/24 Scientific Associate: Teo Chavarria MD PROCEDURES PERFORMED: Coronary angiogram, left heart catheterization, conscious sedation administration and supervision, less than 15 minutes; fluoroscopy use and interpretation. conscious sedation 15-30 mins, PTCA 1 vessel, PCI 1 vessel PREOPERATIVE DIAGNOSES: nstemi POSTOP DIAGNOSIS: severe multivessel cad DESCRIPTION OF PROCEDURE: The patient or appropriate family signed informed consent understanding the risks, benefits and alternatives of the procedure, they wished to proceed. The patient was brought to the cardiac labor crew supervisor in n.p.o. state. The patient was prepped in a sterile fashion. Sedation was used per cardiac cath protocol. I administered 2 mL of 2% lidocaine to the right wrist. With an antegrade front wall puncture. I cannulated the right radial artery and placed a 6-[place] Glidesheath slender. Next, an intra-arterial spasmolytic was administered. Next, a - 6French Underwood catheter and XXXXX guide and were used for coronary angiogram and LVEDP measurement and pressure pullback. At the completion of procedure, all guides and wires were removed, and there were no immediate complications. FINDINGS: RCA: Moderate vessel off the right sinus of Valsalva, there is an ostial stent placed. 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 distal LM 20% stenosis CIRCUMFLEX: Moderate caliber vessel coming off the left main . it gives off OM1 that has a 90% stenosis c alcific. distal CX has an LPL and is probably codominant vessel. LAD: LAD is a moderate caliber vessel coming of the left main. ostium to prox LAD has 50-60% stenosis INTERVENTION: We decided to proceed with coronary intervention. I started with a 6F _XB 3.5___ Guide to intubate the _LM _. Angiomax bolus and gtt was started. Following this, I decided to wire using an .014 BMW across the culprit lesion with ease. At this time, we performed balloon angioplasty with a _2.25 x 15 mm balloon __12__ ATMS over __15__ seconds with _2 number of inflations. Following this, I decided to place a stent using a 2.5 x 22 mm onyx____ stent inflated up to __16 ___ ATMS over 15 seconds with two separate inflations. Following this, the stent balloon removed and angio performed showing 0% residual stenosis. MITALI pre/post: 3./3 CONCLUSIONS: 1. sp pci to 90% OM1 stenosis 2. LAD has moderate non critical CAD 3. 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 DAPT x 1 year uninterrupted TEO CHAVARRIA MD Sep 23, 2024 11:28
--- NOTE | 2024-09-23 12:12 | DVHSR ---
APPROVED REPORT EXAM: LIMITED Two-dimensional and M-mode echocardiogram with Doppler and color Doppler. Blood Pressure: 153/98 mmHg INDICATION Rule out valvular disease RISK FACTORS Height: 70, Weight: 200 DIMENSIONS EF (%) 52.0 (55-70%)Rt. Atrium (1.9-4.0cm)Asc. Aorta cm Mitral Valve MitralMitral Stenosis E wave0.50m/sMV Mean GR.mmHg A wave0.74m/sMV Peak GR.66mmHg E/A ratio0.72D MVAcm2 DECEL [id number] 1/2 [id number] IVRTmsDop MVA2.97cm2 Aortic Valve Aortic ValveAortic Stenosis V10.89m/[place] Mean GR.30mmHg V23.60m/[place] Peak GR.55mmHg Other Information Technically limited study due to body habitus. Unable to obtain parasternal view. Conclusion lvef 60% by visual estimate mild LVH left atrium dilated mild normal RV function no severe valve abnormalities noted ansarca noted
[2024-09-23] MEDS: PANTOPRAZOLE 40 MG/10 ML VIAL INJ IV SCH (13:13)
[2024-09-23] MEDS: FAMOTIDINE (10MG/ML) 2ML VL IV SCH (13:13)
[2024-09-23] MEDS: AZITHROMYCIN 500MG/ 250ML 250 ML IV SCH (13:13)
[2024-09-23] MEDS ORDERED: PANTOPRAZOLE 40 MG/10 ML VIAL INJ IV ONE (14:30)
--- NOTE | 2024-09-23 14:56 | DVH ---
CHEST RADIOGRAPH Indication: shortness of breath Technique: Single frontal view of the chest was obtained Comparison: XY CHEST PORTABLE on DOS: 09/22/24 FINDINGS: Lines and Tubes: None Lungs: No focal consolidation. Pleura: No effusion. No pneumothorax. Cardiomediastinal contours: Unremarkable Bones: No acute osseous abnormality. IMPRESSION: No acute cardiopulmonary disease.
--- NOTE | 2024-09-23 15:16 | ECG ---
[facility] Test Date: 2024-09-22 Test Time: 18:47:00 Pat Name: EVERTON DIMAS Department: ER Room: 0286T Gender: M Health Educator: CHILANGO : 1965 Requested By: JEROD GONZALEZ Order Number: [id number] Reading MD: Charles Schwartz Measurements Intervals [place] Rate: 85 P: 45 [place]: 120 QRS: -46 QRSD: 90 T: 92 QT: 346 QTc: 412 Interpretive Statements Sinus rhythm Ventricular trigeminy Left anterior fascicular block Abnormal R-wave progression, late transition Nonspecific T abnormalities, lateral leads Electronically Signed On 09-25-2024 16:12:11 PST by Charles Schwartz Please click the below link to view image of tracing.
[2024-09-23] MEDS: methylPREDNISolone SOD SUCC 125 MG/2 ML VL IV ONE (15:24)
[2024-09-23] MEDS: diphenhdrAMINE HCL 50 MG/1 ML VL IV ONE (15:25)
[2024-09-23] MEDS: SODIUM CHLORIDE 0.9% 500 ML IV ONE (15:27)
[2024-09-23] MEDS: SODIUM CHLORIDE 0.9% 1,000 ML IV ONE (15:30)
--- NOTE | 2024-09-23 16:56 | DVHPNRES ---
Progress Note Date Seen: Sep 23, 2024 Resident Creating Document: OCTAVIO LINDER RESIDENT Medical Necessity Reason Pt with a Central, PICC or Fol: No Medical Necessity Reason Chest pain for 5 days elevated troponin Subjective Review of Systems This is a 58 years old male with past medical history of CAD s/p PCI, hypertension, diabetes mellitus type 2, asthma presented to the ED with a chest pain and shortness of breaths. Patient was actually transferred from [facility] due to an elevated troponin. According to the patient, he has been having chest pain for the past 5 days. Chest pain was of sudden onset, pressure- like sensation, located in the left precordial and rated 2/10. Pain was not radiated any were however it is associated with exertion. Patient also reported cough with greenish sputum production with the past 5 days. Patient admits to being around sick people he also endorses fever. However he denied any palpitation constipation diarrhea dysuria, dyspnea or joint pain. His EKG revealed with a sinus rhythm, T-wave inversion in 1 and aVL. Initial lab showed wbc13.5, hemoglobin 17.4, platelet 228, troponin I 2327> 2441> 2396. CXR suspected bilateral lower lobe congestion/opacity. Constitutional: Denies fever no chills no feeling of malaise HEENT: Denies headache, ear pain, ear discharges, conjunctivitis, nasal discharge throat pain Cardiovascular: chest pain, palpitation, orthopnea, PND, or pedal edema Respiratory: shortness of breath, cough, greenish, sputum production; no h emoptysis, GI: Denies abdominal pain, nausea, vomiting, diarrhea, hematemesis, hematochezia, : Denies frequency, urgency, hematuria, Endocrine: Denies unintentional weight gain or weight loss, feeling of hot flashes, Moses: Denies easy bruising, bleeding disorders, epistaxis Musculoskeletal: Denies joint pains, muscle aches Psych: No evidence of depression, min, suicidal ideation Neurological- denies acute dysarthria, dysphagia, change in vision Skin- denies acute rash or purpura Allergy- NKDA Past Medical History: CAD, PTCAx1, hypertension, diabetes mellitus type 2, asthma Past Surgical History: Neck surgery, PTCA x1, Family History: Mom and dad both had hypertension Past Social History: smoker, half a pack a day, denies doing drugs or alcohol, lives in a senior living Objective vital signs Vital Sign Date Time Temp Pulse Resp B/P (MAP) Pulse Ox O2 Delivery O2 Flow Rate FiO2 09/23/24 14:00 103 16 /7 97 09/23/24 13:18 Nasal Cannula* 3 32 09/23/24 08:00 98.3 98.3 Total Intake and Output 09/22/24 09/22/24 09/23/24 15:00 23:00 07:00 Intake Total 300 ml Balance 300 ml medications Current Medications Medications Dose Ordered Sig/[place] Route Start Time Stop Time Status Last Admin Dose Admin Sodium Chloride 10 ml Q8HR IV 09/22/24 22:00 09/23/24 15:26 10 ML Ondansetron HCl 4 mg Q4HP PRN IV 09/22/24 20:15 Morphine Sulfate 2 mg Q4HPRN PRN IV 09/22/24 20:15 Nitroglycerin 0.4 mg Q5MINP PRN SL 09/22/24 20:15 Morphine Sulfate 2 mg Q30M PRN IV 09/22/24 20:15 Acetaminophen 650 mg Q6HP PRN PO 09/22/24 23:30 Aspirin 81 mg DAILY PO 09/23/24 10:00 Atorvastatin Calcium 80 mg HS PO 09/23/24 22:00 Ceftriaxone Sodium 50 ml @ 100 mls/hr DAILY IV 09/24/24 10:00 Levalbuterol HCl 1.25 mg Q6HR NEB 09/23/24 00:00 09/23/24 13:18 1.25 MG Ipratropium [place] 0.5 mg Q6HR NEB 09/23/24 06:00 09/23/24 13:18 0.5 MG Hydralazine HCl 10 mg Q6HP PRN IV 09/22/24 23:30 Diagnostic Test (Pha) 1 strip ACHS 09/23/24 07:00 09/23/24 13:14 1 STRIP Insulin Human Regular ACHS SC 09/23/24 07:00 09/23/24 13:15 6 UNITS Dextrose 50 ml UD PRN IV 09/22/24 23:30 Famotidine 20 mg Q12HR IV 09/23/24 10:00 09/23/24 13:13 20 MG Azithromycin 250 ml @ 125 mls/hr DAILY IV 09/23/24 10:00 09/23/24 13:13 125 MLS/HR Ticagrelor 90 mg BID PO 09/23/24 22:00 Ticagrelor 90 mg BID PO 09/23/24 22:00 UNV Pantoprazole Sodium 40 mg DAILY IV 09/24/24 10:00 Examination Patient seen and examine after PCI procedure. He seemed very update and wanted to leave and was angry for that he was not being treated well. General examination-->awake, alert, oriented, conversant; Mild distress, on 3L oxygen HEENT: PEERLA, no acute nasal discharge Chest: S1-S2 audible, rate and rhythm regular, no murmur Lung: CTAB, no wheeze or rhonchi Abdomen: Nondistend, BS+, nontenderness, no organomegaly Musculoskeletal: no acute joint swelling or tenderness Extremity: no leg edema Neurological: cranial nerves intact, no acute dysarthria or dysphagia Psychiatry-- Normal mood and affect Skin- no acute rash or purpura laboratory and microbiology Laboratory Tests 09/23/24 06:12 Test 09/23/24 06:12 Range/Units Serum Glucose 436 *H 74-106 mg/dL Problem List/Assessment/Plan Problem List/Assessment/Plan severe multivessel CAD s/p Cardiac cathetrization 1. sp pci to 90% OM1 stenosis 2. LAD has moderate non critical CAD 3. 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 --> DAPT x 1 year uninterrupted ( Ticagrelor and Aspirin) NSTEMI --> see above ? COPD --> Azithromycin --> Ceftriaxone --> Breathing treatment with ipratropium and albuterol Hypertension -->hydralazine 10 prn Depression -->Cymbalta Hyperlipidemia --> continue atorvastatin Diabetes type 2 --> uncontrolled diabetes with hemoglobin a 1 C of 9.6 --> Insulin Code status: Full Care was discussed for more than 35 minutes Case and plan discussed with Dr. Sahu Plan discussed with: Patient My Orders My Orders Orders - OCTAVIO LINDER RESIDENT Procedure Category Date Status Time Sodium Chloride 0.9% PHA 09/23/24 In Process 14:00 Pantoprazole PHA 09/24/24 In Process (Protonix) 10:00 Chest Xray 1 View XY 09/23/24 Resulted 14:17 OCTAVIO LINDER RESIDENT Sep 23, 2024 16:56
[2024-09-23] MEDS: TICAGRELOR 90 MG TAB PO SCH (21:49)
[2024-09-23] MEDS: METHOCARBAMOL 500 MG TAB PO SCH (21:49)
[2024-09-23] MEDS: ATORVASTATIN 20 MG TAB PO SCH (21:49)
[2024-09-23] MEDS: DULoxetine HCL 30 MG CAP PO SCH (21:49)
[2024-09-23] MEDS ORDERED: TICAGRELOR 90 MG TAB PO SCH (22:00)
[2024-09-23] MEDS ORDERED: MORP30TA PO (22:51)
[2024-09-24] VITALS (15 sets, daily range): BP systolic 122–153; BP diastolic 66–99; PULSE 58–100; RESP 16–18; TEMP 98–98.4; O2SAT 93–98
[2024-09-24] MEDS: INSULIN LANTUS (GLARGINE) 1 /0.01ml (100units/ml) SC SCH (06:27)
[2024-09-24] MEDS ORDERED: DEXTROSE (50%) 50ML SYRG IV PRN (09:00)
[2024-09-24] MEDS: PANTOPRAZOLE 40 MG/10 ML VIAL INJ IV SCH (09:14)
[2024-09-24] MEDS: cefTRIAXone 1GM/50ML D5W 50 ML IV SCH (09:14)
[2024-09-24 09:22] LABS: Basophils # (auto) 0 10 ^3/uL (0-0.2); Basophils % (auto) 0.1 % (0.0-2.0); Eosinophils # (auto) 0 10 ^3/uL (0-0.8); Eosinophils % (auto) 0.1 % (0.0-7.0); Hematocrit 51.3 % (41.0-53.0); Hemoglobin 17.1 g/dL (13.5-17.5); Lymphocytes # (auto) 1.8 10 ^3/uL (0.4-5.4); Lymphocytes % (auto) 10.1 % (10.0-50.0); Mean Corpuscular Hemoglobin 29.9 pg (28.0-32.0); Mean Corpuscular Hgb Conc. 33.3 g/dL (32.0-36.0); Mean Corpuscular Volume 89.9 fL (80.0-100.0); Monocytes # (auto) 1.4 10 ^3/uL (0-1.3); Monocytes % (auto) 8.2 % (0.0-12.0); Neutrophils # (auto) 14.2 10 ^3/uL (1.6-8.6); Neutrophils % (auto) 81.5 % (37.0-80.0); Nucleated Red Blood Cells % 0.1 %; Platelet Count (auto) 277 10^3/uL (140-450); Red Blood Cells 5.71 10^6/uL (4.5-5.90); Red Cell Distribution Width 14.3 % (11.8-14.3); White Blood Cell 17.5 10^3/uL (4.4-10.8)
[2024-09-24 09:30] LABS: Chloride 106 mmol/L (98-107); Potassium 3.9 mmol/L (3.5-5.1); Sodium 140 mmol/L (136-145)
[2024-09-24 09:31] LABS: Anion Gap 9 (5-15); Carbon Dioxide 25 mmol/L (20-31)
[2024-09-24] MEDS: InsuLIN REG 1unit/0.01ml Soln (100units/ml) SC ONE (09:31)
[2024-09-24 09:32] LABS: Calcium 9.4 mg/dL (8.7-10.4)
[2024-09-24 09:36] LABS: BUN/Creatinine Ratio 19.8 (10.0-20.0); Blood Urea Nitrogen 16 mg/dL (9-23)
[2024-09-24 09:37] LABS: Glucose 286 mg/dL (74-106)
[2024-09-24] MEDS ORDERED: TICA90TA PO (11:08)
[2024-09-24] MEDS ORDERED: ATOR20TA50 PO (11:08)
[2024-09-24] MEDS ORDERED: ASPI-325 PO (11:08)
[2024-09-24] MEDS: InsuLIN REG 1unit/0.01ml Soln (100units/ml) SC SCH (11:10)
[2024-09-24] MEDS: ACCU-CHEK COMFORT CURVE STRIP VI SCH (11:11)
[2024-09-24] MEDS ORDERED: METF-370 PO (11:19)
--- NOTE | 2024-09-24 16:43 | DVHDSRES ---
Discharge Summary Date of Admission Resident Creating Document: OCTAVIO LINDER RESIDENT Sep 22, 2024 at 20:08 Date of Discharge: Sep 24, 2024 Admitting Diagnosis Chest pain for 5 days elevated troponin Labs/Diagnostic Data: Laboratory Results Test 09/24/24 10:47 09/24/24 08:49 09/23/24 06:12 09/22/24 22:57 POC Glucose 172 mg/dl (70-106) White Blood Count 17.5 10^3/uL (4.4-10.8) Red Blood Count 5.71 10^6/uL (4.5-5.90) Hemoglobin 17.1 g/dL (13.5-17.5) Hematocrit 51.3 % (41.0-53.0) Mean Corpuscular Volume 89.9 fL (80.0-100.0) Mean Corpuscular Hemoglobin 29.9 pg (28.0-32.0) Mean Corpuscular Hemoglobin Concent 33.3 g/dL (32.0-36.0) Red Cell Distribution Width 14.3 % (11.8-14.3) Platelet Count 277 10^3/uL (140-450) Mean Platelet Volume 8.8 fL (6.9-10.8) Neutrophils (%) (Auto) 81.5 % (37.0-80.0) Lymphocytes (%) (Auto) 10.1 % (10.0-50.0) Monocytes (%) (Auto) 8.2 % (0.0-12.0) Eosinophils (%) (Auto) 0.1 % (0.0-7.0) Basophils (%) (Auto) 0.1 % (0.0-2.0) Neutrophils # (Auto) 14.2 10 ^3/uL (1.6-8.6) Lymphocytes # (Auto) 1.8 10 ^3/uL (0.4-5.4) Monocytes # (Auto) 1.4 10 ^3/uL (0-1.3) Eosinophils # (Auto) 0 10 ^3/uL (0-0.8) Basophils # (Auto) 0 10 ^3/uL (0-0.2) Nucleated Red Blood Cells 0.1 % Sodium Level 140 mmol/L (136-145) Potassium Level 3.9 mmol/L (3.5-5.1) Chloride Level 106 mmol/L (98-107) Carbon Dioxide Level 25 mmol/L (20-31) Anion Gap 9 (5-15) Blood Urea Nitrogen 16 mg/dL (9-23) Creatinine 0.81 mg/dL (0.700-1.30) Glomerular Filtration Rate Calc 102 mL/min (>90) BUN/Creatinine Ratio 19.8 (10.0-20.0) Serum Glucose 286 mg/dL (74-106) Calcium Level 9.4 mg/dL (8.7-10.4) Prothrombin Time 11.5 sec (9.3-11.8) Prothrombin Time INR 1.09 (0.9-1.15) Activated Partial Thromboplast Time 31.6 SEC (24.5-34.5) Total Bilirubin 0.7 mg/dL (0.2-1.0) Aspartate Amino Transferase (AST) 12 U/L (13-40) Alanine Aminotransferase (ALT) < 9 U/L (7-40) Alkaline Phosphatase 141 U/L (46-116) Total Protein 6.9 g/dL (5.7-8.2) Albumin 4.2 g/dL (3.2-4.8) Phosphorus Level 2.9 mg/dL (2.4-5.1) Magnesium Level 2.2 mg/dL (1.6-2.6) Troponin I High Sensitivity 2396 ng/L (</=34) Thyroid Stimulating Hormone (TSH) 1.77 uIU/mL (0.55-4.78) Test 09/22/24 21:20 09/22/24 20:59 09/22/24 20:52 Urine Color Yellow (Yellow) Urine Clarity Clear (Clear) Urine pH 6.5 (5.0-9.0) Urine Specific [place] 1.044 (1.001-1.035) Urine Protein Trace (Negative) Urine Ketones 1+ (Negative) Urine Blood Negative /uL (Negative) Urine Nitrite Negative (Negative) Urine Bilirubin Negative (Negative) Urine Urobilinogen Normal mg/dL (Negative) Urine Leukocyte Esterase Negative /uL (Negative) Urine RBC 3 /hpf (0 - 4) Urine WBC <1 /hpf (0 - 5) Urine Squamous Epithelial Cells None seen /hpf (<5) Urine Bacteria None seen /hpf (None Seen) Urine Glucose 4+ mg/dL (Normal) Urine Opiates Screen Neg (NEGATIVE) Urine Fentanyl Screen Neg (NEGATIVE) Urine Barbiturates Screen Neg (NEGATIVE) Urine Phencyclidine Screen Neg (NEGATIVE) Urine Amphetamines Screen Neg (NEGATIVE) Urine Benzodiazepines Screen Neg (NEGATIVE) Urine Cocaine Screen Neg (NEGATIVE) Urine Cannabinoids Screen Neg (NEGATIVE) Influenza Type A Antigen Negative (Negative) Influenza Type B Antigen Negative (Negative) SARS-CoV-2 Antigen (Rapid) Negative (NEGATIVE) Hemoglobin A1c 9.6 % A1C (<5.7) B-Type Natriuretic Peptide 93.53 pg/mL (0-100) Other Laboratory Tests 09/24/24 08:49 Brief Hx & Hospital Course: Mr Kalyan Grace is a 58 years old male with a past medical history of CAD s/p PCI, hypertension, diabetes mellitus type 2, asthma presented to the ED with a chest pain and shortness of breaths. Patient was actually transferred from [facility] due to an elevated troponin. According to the patient, he has been having chest pain for the past 5 days. Chest pain was of sudden onset, pressure-like sensation, located in the left precordial and rated 2/10. Pain was not radiated anywhere however it is associated with exertion. Patient also reported cough with greenish sputum production with the past 5 days. Patient admits to being around sick people and he also endorsed fever. However, he denied any palpitation, constipation, diarrhea, dysuria, dyspnea or joint pain. His EKG revealed with a sinus rhythm, T-wave inversion in 1 and aVL. Initial lab showed wbc13.5, hemoglobin 17.4, platelet 228, troponin I 2327> 2441> 2396. CXR revealed suspected bilateral lower lobe congestion/opacity. Cardiology consult and patient was taken to the medical laboratory technical officer yesterday where he had PCI. The surgical intervention was uneventful and patient is stable postop. This morning, I saw and examined the patient.He was lying in bed comfortably without any chest pain or shortness a breath or palpitation reported. Examination General examination: awake, alert, oriented, conversant; Mild distress, on 3L oxygen HEENT: PEER[place], no acute nasal discharge Chest: S1-S2 audible, rate and rhythm regular, no murmur Lung: CTAB, no wheeze or rhonchi Abdomen: Nondistend, BS+, nontenderness, no organomegaly Musculoskeletal: no acute joint swelling or tenderness Extremity: no leg edema Neurological: cranial nerves intact, no acute dysarthria or dysphagia Psychiatry-- Normal mood and affect Skin- no acute rash or purpura Diagnoses Severe multivessel CAD s/p PCI (09/23/2024) NSTEMI ? COPD Hypertension Depression Hyperlipidemia Diabetes type 2 From our medical standpoint, patient is stable for discharge. Will discharge him home on Aspirin, Atorvastatin, metformin and Ticagrelor. Patient is advised come to the discharge clinic in a week for review. Case and discharged plan discussed with Dr. Sahu Consults/Reason for consult Chest pain and elevated troponin Operations or Procedures PATIENT: EVERTON DIMAS ACCT: [id number] UNIT: [id number] : 1965 LOC: TELE ROOM / BED: [address] [place] [id number] / A AGE / SEX: 58 / M ADM STATUS: ADM IN SERVICE 1417 ORDERING PHYSICIAN: OCTAVIO LINDER PROCEDURE(s): CXR1 - CHEST XRAY 1 VIEW REASON: shortness of breath ORDER NUMBER(s): [id number], ACCESSION NUMBER(s): [id number] CHEST RADIOGRAPH Indication: shortness of breath Technique: Single frontal view of the chest was obtained Comparison: XY CHEST PORTABLE on DOS: 09/22/24 FINDINGS: Lines and Tubes: None Lungs: No focal consolidation. Pleura: No effusion. No pneumothorax. Cardiomediastinal contours: Unremarkable Bones: No acute osseous abnormality. IMPRESSION: No acute cardiopulmonary disease. ATED BY: JOSE LYNN MD DICTATED DATE/TIME: 09/23/24 1454 PATIENT: EVERTON DIMAS ACCT: [id number] UNIT: [id number] : 1965 LOC: ER ROOM / BED: / AGE / SEX: 58 / F ADM STATUS: REG ER SERVICE 1908 ORDERING PHYSICIAN: JEROD GONZALEZ MD PROCEDURE(s): CXRP - CHEST PORTABLE REASON: cp ORDER NUMBER(s): [id number], ACCESSION NUMBER(s): [id number] EXAMINATION: AP portable chest radiograph CLINICAL HISTORY: cp COMPARISON: None TECHNIQUE: Single portable AP view of the chest FINDINGS: Negative AP chest. No dominant consolidations. The costophrenic angles are clear. No sizable pleural effusions or pneumothorax identified. The cardiomediastinal silhouette appears within normal limits given technique. IMPRESSION: 1. Cardiac size is within normal limits. ATED BY: GUSTABO NAJERA Jr., DO DICTATED DATE/TIME: 09/22/241937 Condition at Discharge: Good Final Diagnosis/Problems List Severe multivessel CAD s/p Cardiac cathetrization NSTEMI ? COPD Hypertension Depression Hyperlipidemia Diabetes type 2 Discharge Disposition: Home Discharge Instruct/Medications Diet: Cardiac 2g Na,low cholest Activity: No Restrictions, As Tolerated Follow Up/Referral: fu with pcp in 1 week Medications: continue home meds as prescribed continue dapt, lipitor Discharge Statement: "Patient was advised to return to the ER or call 911 if any headaches, dizziness, shortness of breath, chest pain, abdominal pain, bleeding, fevers, or worsening of medical condition. Patient was counseled about treatment plan, medications, possible side effects, patientverbalized understanding. All questions were answered to the best of my ability. This discharge took greater then 30 minutes in planning, reviewing documentation, counseling the patient, and discussing with other team members." ASSESSMENT ASSESSMENT Assessment acs s/p pci OCTAVIO LINDER RESIDENT Sep 24, 2024 16:43
--- NOTE | 2024-09-24 17:11 | DVHPN2 ---
Progress Note Date Seen: Sep 24, 2024 Medical Necessity Reason Pt with a Central, PICC or Fol: No Subjective Patient reports: Feels better Other Systems: sp pci Objective vital signs Vital Sign Date Time Temp Pulse Resp B/P (MAP) Pulse Ox O2 Delivery O2 Flow Rate FiO2 09/24/24 16:00 16 96 Room Air* 0 21 09/24/24 15:23 98.0 87 09/24/24 13:00 123/66 (85) Total Intake and Output 09/23/24 09/23/24 09/24/24 15:00 23:00 07:00 Intake Total 200 ml Balance 200 ml medications Current Medications Medications Dose Ordered Sig/[place] Route Start Time Stop Time Status Last Admin Dose Admin Sodium Chloride 10 ml Q8HR IV 09/22/24 22:00 09/24/24 13:40 10 ML Ondansetron HCl 4 mg Q4HP PRN IV 09/22/24 20:15 Morphine Sulfate 2 mg Q4HPRN PRN IV 09/22/24 20:15 Nitroglycerin 0.4 mg Q5MINP PRN SL 09/22/24 20:15 Morphine Sulfate 2 mg Q30M PRN IV 09/22/24 20:15 Acetaminophen 650 mg Q6HP PRN PO 09/22/24 23:30 Aspirin 81 mg DAILY PO 09/23/24 10:00 09/24/24 09:44 81 MG Atorvastatin Calcium 80 mg HS PO 09/23/24 22:00 09/23/24 21:49 80 MG Ceftriaxone Sodium 50 ml @ 100 mls/hr DAILY IV 09/24/24 10:00 09/24/24 09:14 100 MLS/HR Levalbuterol HCl 1.25 mg Q6HR NEB 09/23/24 00:00 09/24/24 12:58 1.25 MG Ipratropium [place] 0.5 mg Q6HR NEB 09/23/24 06:00 09/24/24 12:58 0.5 MG Hydralazine HCl 10 mg Q6HP PRN IV 09/22/24 23:30 Diagnostic Test (Pha) 1 strip ACHS 09/23/24 07:00 09/24/24 11:11 1 STRIP Dextrose 50 ml UD PRN IV 09/22/24 23:30 Famotidine 20 mg Q12HR IV 09/23/24 10:00 09/24/24 09:14 20 MG Azithromycin 250 ml @ 125 mls/hr DAILY IV 09/23/24 10:00 09/24/24 09:58 125 MLS/HR Ticagrelor 90 mg BID PO 09/23/24 22:00 09/24/24 09:44 90 MG Ticagrelor 90 mg BID PO 09/23/24 22:00 UNV Pantoprazole Sodium 40 mg DAILY IV 09/24/24 10:00 09/24/24 09:14 40 MG Duloxetine HCl 30 mg BID PO 09/23/24 22:00 09/24/24 10:19 30 MG Methocarbamol 750 mg TID PO 09/23/24 22:00 09/24/24 13:41 750 MG Insulin Glargine 22 units QAM SC 09/24/24 07:00 09/24/24 06:27 22 UNITS Diagnostic Test (Pha) 1 strip ACHS 09/24/24 11:30 Insulin Human Regular AC SC 09/24/24 11:30 09/24/24 11:10 4 UNITS Insulin Human Regular HS SC 09/24/24 22:00 Dextrose 50 ml UD PRN IV 09/24/24 09:00 Examination: GENERAL:Abnormal, HEENT:Abnormal, LUNGS:Abnormal, CVS:Abnormal, ABDOMEN:Abnormal laboratory and microbiology Laboratory Tests 09/24/24 08:49 Test 09/24/24 08:49 Range/Units Serum Glucose 286 #H 74-106 mg/dL Problem List/Assessment/Plan Problem List/Assessment/Plan cough moderate nstemi cad s/p pci pci to 90% OM cont dapt now echo shows moderate ,mean gradient of 28 mmhg, will need annual surveillance cont cough suppressant, very bad cough fu with me after DC Plan discussed with: Patient Date of Service: Sep 24, 2024 Billing Provider: TEO CHAVARRIA MD Common Visit Codes: NOT BILLABLE TEO CHAVARRIA MD Sep 24, 2024 17:11
[2024-09-24] MEDS ORDERED: InsuLIN REG 1unit/0.01ml Soln (100units/ml) SC SCH (22:00)
== END 2024-09-24 17:00 | disposition home or self-care (01) | DRG 321 ==
LOC: ER 18:42 → EDBD 18:42 → TELE 20:08 → EDSEX 20:08 → TELE-WESTW 09-23 18:41
PROVIDERS: ADMIT Student in an Organized Health Care Education/Training Program; ATTEND Student in an Organized Health Care Education/Training Program
PROC: 027034Z Dilation of Coronary Artery, One Artery with Drug-eluting Intraluminal Device, Percutaneous Approach (ICD-10-PCS; principal; 2024-09-23)
PROC: 4A023N7 Measurement of Cardiac Sampling and Pressure, Left Heart, Percutaneous Approach (ICD-10-PCS; 2024-09-23)
PROC: B211YZZ Fluoroscopy of Multiple Coronary Arteries using Other Contrast (ICD-10-PCS; 2024-09-23)
DX: I21.4 Non-ST elevation (NSTEMI) myocardial infarction (principal); J96.01 Acute respiratory failure with hypoxia; J45.901 Unspecified asthma with (acute) exacerbation; I10 Essential (primary) hypertension; E11.9 Type 2 diabetes mellitus without complications; F17.210 Nicotine dependence, cigarettes, uncomplicated; J44.89 Other specified chronic obstructive pulmonary disease; I25.10 Atherosclerotic heart disease of native coronary artery without angina pectoris; Z20.822 Contact with and (suspected) exposure to COVID-19; D75.1 Secondary polycythemia; E78.5 Hyperlipidemia, unspecified; F32.A Depression, unspecified; D72.829 Elevated white blood cell count, unspecified; Z82.49 Family history of ischemic heart disease and other diseases of the circulatory system; Z79.4 Long term (current) use of insulin; Z79.899 Other long term (current) drug therapy
CPT/HCPCS: 36415; 71045; 80048; 80053; 80307; 81001; 82962; 83036; 83735; 83880; 84100; 84443; 84484; 85025; 85610; 85730; 87426; 87804; 93005; 93306; 94640; 99152; 99291; C1874; G0378; J1815; J2250; J2470; J3490; Q9967